=== PATIENT | female | born 1955 | race Caucasian/White ===

== ENCOUNTER 2019-02-14 22:07 | Emergency (ER) | payer MEDICAID ==
[~2019-02-14] VITALS: Ht 147.3 cm; Wt 55.8 kg
[2019-02-14 23:52] LABS: BASOPHILS # (AUTO) 0.02 x10^3/uL (0-0.1); BASOPHILS % (AUTO) 0 % (0-1); EOSINOPHILS % (AUTO) 0 % (1-7); LYMPHOCYTES # (AUTO) 1.42 x10^3/uL (1-3.4); LYMPHOCYTES % (AUTO) 11 % (22-44); MD NO; MEAN CORPUSCULAR HEMOGLOBIN 30.6 pg (27.0-34.8); MEAN CORPUSCULAR HGB CONC 33.4 g/dL (32.4-35.8); MEAN CORPUSCULAR VOLUME 91.5 fL (80-100); MEAN PLATELET VOLUME 8.9 fL (7.4-10.4); MONOCYTES % (AUTO) 1 % (2-9); NEUTROPHILS % (AUTO) 88 % (42-75); PLATELET COUNT 369 x10^3/uL (130-400); RED BLOOD COUNT 4.64 x10^6/uL (3.82-5.3); RED CELL DISTRIBUTION WIDTH 14.1 % (9.6-15.2)
[2019-02-15 00:02] LABS: ALANINE AMINOTRANSFERASE 75 U/L (12-78); ALBUMIN 4.5 g/dL (3.4-5.0); ANION GAP 10 mmol/L (5-15); CHLORIDE 107 mmol/L (98-107); CREATININE 0.68 mg/dL (0.55-1.02)
[2019-02-15 00:04] LABS: ALKALINE PHOSPHATASE 65 U/L (45-117); BILIRUBIN,TOTAL 0.6 mg/dL (0.2-1.0); TOTAL PROTEIN 7.8 g/dL (6.4-8.2)
[2019-02-15] MEDS ORDERED: ONDANSETRON ODT 4 MG ONE (00:07)
--- NOTE | 2019-02-15 00:26 | NUR ---
PT REPORTS N/V TODAY. FAMILY AT BEDSIDE. NO ACUTE DISTRESS NOTED. VS STABLE. CALL LIGHT IN PLACE. WILL CONTINUE TO MONITOR.
[2019-02-15 00:27] LABS: MICROSCOPIC NOT IND
[2019-02-15] MEDS ORDERED: ONDANSETRON ODT 4 MG PO ONE (00:30)
[2019-02-15] MEDS ORDERED: ACETAMINOPHEN 500 MG TABLET PO ONE (00:30)
[2019-02-15 00:40] LABS: CULTURE INDICATED? NO
[2019-02-15] MEDS ORDERED: ACETAMINOPHEN 500 MG TABLET ONE (00:47)
--- NOTE | 2019-02-15 00:53 | NUR ---
PT ABLE TO HOLD FLUIDS DOWN. TYLENOL GIVEN. PT HAS A HEADACHE. CALL LIGHT IN PLACE. WILL CONTINUE TO MONITOR.
[2019-02-15 01:26] VITALS: BP 155/90
--- NOTE | 2019-02-15 01:28 | NUR ---
Pt reports her headache is better. Family at bedside. pt ready for discharge.
== END 2019-02-15 01:55 | disposition home or self-care (01) ==
LOC: ED 23:55
DX: R11.2 Nausea with vomiting, unspecified (principal); R19.7 Diarrhea, unspecified; R10.9 Unspecified abdominal pain; J44.9 Chronic obstructive pulmonary disease, unspecified; E78.5 Hyperlipidemia, unspecified; E11.9 Type 2 diabetes mellitus without complications; I10 Essential (primary) hypertension
CPT/HCPCS: 36415; 80053; 81003; 83690; 85025; 93005; 99284; Q0162